=== PATIENT | male | born 1955 | race Caucasian/White ===

== ENCOUNTER 2017-07-02 00:57 | Emergency (ER) | payer OTHER ==
[~2017-07-02] VITALS: Ht 170.2 cm; Wt 112.9 kg
[~2017-07-02 00:57] MED LIST: NOHOMEMEDS
[2017-07-02 01:34] LABS: HEMATOCRIT 44.8 % (38.0-50.0); MCH 29.3 PG (29.0-34.0); MCHC 32.6 G/DL (30.0-36.0); MEAN PLAT.VOLUME 11.5 uM^3 (9.0-12.4); PLATELET COUNT 178 K/uL (156-360); RBC DIS.WIDTH-CV 12.6 % (11.8-14.6); RBC DIS.WIDTH-SD 41.7 % (39-53); RED BLOOD COUNT 4.98 M/uL (4.00-5.50)
[2017-07-02 01:47] LABS: CHLORIDE 102 mEq/L (99-109); POTASSIUM 4.2 mEq/L (3.7-5.4); SODIUM 140 mEq/L (136-147)
[2017-07-02 01:49] LABS: GLUCOSE 169 mg/dL (70-99)
[2017-07-02 01:50] LABS: ANION GAP 11 MEQ/L (2-14)
[2017-07-02 01:51] LABS: TOTAL BILIRUBIN 0.3 mg/dL (0.0-1.0)
[2017-07-02 01:52] LABS: ALKALINE PHOSPHATASE 87 IU/L (3-129)
[2017-07-02 01:53] LABS: GFR ESTIMATE (CALCULATED) > 59 mL/min/
[2017-07-02 01:54] LABS: UREA NITROGEN (BUN) 15 mg/dL (9-23)
[2017-07-02 02:39] LABS: ADD MIUA? YES; BILIRUBIN NEGATIVE; BLOOD MODERATE; COLOR YELLOW ((YELLOW)); GLUCOSE (STRIP) 50; KETONES NEGATIVE; LEUKOCYTES NEGATIVE; NITRITE NEGATIVE; PROTEIN (STRIP) 30; SPECIFIC GRAVITY 1.014 (1.000-1.030); UROBILINOGEN 0.2 MG/DL (0.2-1.0)
[2017-07-02 03:29] LABS: BACTERIA RARE /HPF; EPITHELIAL CELLS NONE SEEN /HPF; MUCUS NONE SEEN /LPF; RED BLOOD CELLS 20-30 /HPF (0-5); UCUL ADDED? NO; WHITE BLOOD CELLS NONE SEEN /HPF (0-5)
[2017-07-02] MEDS ORDERED: ZOFRAN4 MG PO (04:15)
[2017-07-02] MEDS ORDERED: PERCOCET 5/31 TABLET PO (04:15)
[2017-07-02] MEDS ORDERED: FLOMAX0.4 MG PO (04:15)
[2017-07-02 04:39] VITALS: BP 161/89
== END 2017-07-02 04:40 | disposition home or self-care (01) ==
LOC: EME 00:57
DX: N20.0 Calculus of kidney (principal); E11.9 Type 2 diabetes mellitus without complications; Z87.442 Personal history of urinary calculi
CPT/HCPCS: 74176; 80053; 81003; 85027; 87086; 99281; 99285; J1885; J2270; J2405